=== PATIENT | female | born 1955 | race Caucasian/White ===

== ENCOUNTER 2019-07-24 13:26 | Outpatient (CLI) | payer BC, OTHER | END 2019-07-24 13:27 | disposition home or self-care (01) | LOC: ULT 13:26 | PROVIDERS: ATTEND Internal Medicine Hematology & Oncology | DX: Z51.11 Encounter for antineoplastic chemotherapy (principal); C50.211 Malignant neoplasm of upper-inner quadrant of right female breast; Z79.899 Other long term (current) drug therapy; I08.1 Rheumatic disorders of both mitral and tricuspid valves | CPT/HCPCS: 93306 ==

== ENCOUNTER 2019-07-27 11:44 | Outpatient (CLI) | payer BC ==
[2019-07-27 15:25] LABS: Anion Gap 12 mmol/L (10-20); BUN (Urea Nitrogen) 14 mg/dL (9.8-20.1); Calc. Creatinine Clearance 0 mL/min (70-130); Calcium 9.4 mg/dL (7.8-10.44); Carbon Dioxide 26 mmol/L (23-31); Chloride 101 mmol/L (98-107); Estimated GFR-MDRD 50; Glucose 296 mg/dL (80-115); Sodium 135 mmol/L (136-145)
--- NOTE | 2019-07-29 13:40 | EKG ---
Test Reason : Blood Pressure : / mmHG Vent. Rate : 092 BPM Atrial Rate : 092 BPM P-R Int : 160 ms QRS Dur : 064 ms QT Int : 328 ms P-R-T Axes : 055 023 031 degrees QTc Int : 405 ms Normal sinus rhythm Possible Anterolateral infarct , age undetermined Abnormal ECG No previous ECGs available Confirmed by RANJIT CARDONA (2) on 07/29/2019 1:40:01 PM Referred By: TRACE Confirmed By:RANJIT CARDONA
== END 2019-07-27 11:45 | disposition home or self-care (01) ==
LOC: LABBT 11:44
PROVIDERS: ATTEND Surgery
DX: Z01.818 Encounter for other preprocedural examination (principal); C50.919 Malignant neoplasm of unspecified site of unspecified female breast
CPT/HCPCS: 80048; 93005; 93010

== ENCOUNTER 2019-07-31 08:38 | Outpatient (CLI) | payer BC ==
[2019-07-31] MEDS ORDERED: Iopamidol 370 76% 100 ML VIAL ONE (10:18)
--- NOTE | 2019-07-31 10:38 | CT ---
EXAM: CT chest, abdomen, and pelvis with IV contrast: HISTORY: Recent diagnosis of breast cancer. COMPARISON: None FINDINGS: CT THORAX: Lungs: There are scattered pulmonary nodules within the upper lobes bilaterally some of which are ple ural-based. Largest pleural-based pulmonary nodule in the anterolateral right upper lobe measures 8 mm. Additional smaller pulmonary nodules in the right lung measure 5 mm or less. There is a pulmonary nodule in the left upper lobe measuring 6 mm with a few additional pleural-based nodules also present one at the medial aspect left upper lobe and additional nodule in the anteromedial aspect of the lingula. Additional tiny 3 mm pulmonary nodule seen in the region of the lingula as well. There is a linear parenchymal density at the lateral aspect right midlung zone which could be related to an area of scarring. Pleura: No pleural effusion. Lymph nodes: There are enlarged and increased number of right axillary lymph nodes. Largest right axi llary lymph node measures 3.5 cm x 1.9 cm. Mediastinum: No enlarged mediastinal lymph nodes are seen by CT size criteria. Vascular calcification s are seen in the coronary arteries and involving the thoracic aorta. Chest wall: There is an irregular shaped mass in the right breast measuring 2.4 cm which may correspo nd to patient's known breast neoplasm. There is skin thickening seen overlying the right breast. Findings could potentially be related to prior radiation therapy if the patient has had prior radiati on. CT ABDOMEN AND PELVIS: Liver: Diminished attenuation most compatible with fatty infiltration with focal fatty sparing adjace nt to the gallbladder. No definite hepatic lesion is seen. Gallbladder: Within normal limits. \ Pancreas: Within normal limits. Spleen: Within normal limits. Adrenal glands: Within normal limits. Kidneys: Within normal limits. Urinary Bladder: The urinary bladder is unremarkable. Reproductive organs: Within normal limits for patient's age. Bowel: There is colonic diverticulosis. Loops of small bowel are normal in caliber. Adenopathy:No lymphadenopathy within the abdomen or pelvis. Peritoneum: No free fluid or fluid collection is seen. No free intraperitoneal gas is identified. Abdominal wall: No abnormalities seen. Osseous structures: There is mild S-shaped scoliotic curvature of thoracolumbar spine with degenerati ve changes seen at the lumbosacral junction. No suspicious lytic or sclerotic osseous lesions are identified. IMPRESSION: 1. Irregular mass right breast with overlying skin thickening. Findings may be related to patient's k nown breast neoplasm with skin thickening possibly attributable to prior radiation therapy. 2. Right axillary lymphadenopathy. 3. Pulmonary nodules in the upper lobes bilaterally some of which are pleural-based. Metastatic disea se should be considered. 4. Fatty infiltration liver. 5. No acute findings or lymphadenopathy is seen in the abdomen or pelvis.
--- NOTE | 2019-07-31 14:16 | NM ---
WHOLE BODY BONE SCAN: HISTORY: Malignant neoplasm of upper inner quadrant of the right female breast RADIOPHARMACEUTICAL: 30 mCi technetium 99m-MDP injected intravenously COMPARISON: None CORRELATION: CT chest, abdomen and pelvis from the same date FINDINGS: There scattered degenerative activity in the appendicular skeleton. Increased uptake in the lower lum bar spine corresponds to the degenerative changes seen on the CT scan of same date. No other abnormal areas of tracer localization are seen in the skeleton to suggest metastatic disease . Tracer excretion through the kidneys is within normal limits. IMPRESSION: No scintigraphic evidence of osseous metastatic disease.
== END 2019-07-31 08:39 | disposition home or self-care (01) ==
LOC: CT 08:38
PROVIDERS: ATTEND Internal Medicine Hematology & Oncology
DX: C50.211 Malignant neoplasm of upper-inner quadrant of right female breast (principal); R59.0 Localized enlarged lymph nodes; R91.8 Other nonspecific abnormal finding of lung field; K76.0 Fatty (change of) liver, not elsewhere classified
CPT/HCPCS: 71260; 74177; 78306; A9503; Q9967

== ENCOUNTER 2019-08-06 06:46 | Day surgery (SDC) | payer BC, OTHER ==
[2019-07-27 13:00] VITALS: BMI 38.1
[2019-08-06] MEDS ORDERED: Lidocaine 1% w/Epinephrine 1:100K 20 ML VIAL ONE (09:55)
[2019-08-06] MEDS ORDERED: Bupivacaine 0.25% HCL 30 ML VIAL ONE (09:55)
[2019-08-06] MEDS ORDERED: Fentanyl 100 MCG/2 ML VIAL ONE (09:58)
[2019-08-06] MEDS ORDERED: Propofol 500 MG/50 ML VIAL ONE (09:58)
[2019-08-06] MEDS ORDERED: Midazolam HCl 2 mg/2 ml Vial ONE (09:58)
[2019-08-06] MEDS ORDERED: PHENYLEPHRINE-NS 100 MCG/ML 10 ML SYRINGE ONE (10:33)
--- NOTE | 2019-08-06 12:13 | RAD ---
RADIOGRAPH CHEST 1 VIEW: 08/06/2019 11:42 a.m. HISTORY: A 63-year-old female status post Mediport placement. FINDINGS: There is no air space density, pulmonary edema, or pneumothorax. The lateral costophrenic angles are sharp. There is a vascular access port catheter looped in the medial aspect of the right neck (presumably in the right internal jugular vein), then descending vertically with the distal tip overlying the expec hiren location of the mid to lower portion of the SVC. IMPRESSION: 1. No acute pulmonary findings. 2. Right sided implantable vascular access port. jn [] POS: [facility]
--- NOTE | 2019-08-06 14:57 | OP ---
DATE OF PROCEDURE: 08/06/2019 PREOPERATIVE DIAGNOSIS: Breast cancer, stage III. POSTOPERATIVE DIAGNOSIS: Breast cancer, stage III. PROCEDURES PERFORMED: 1. Attempted left IJ MediPort placement. 2. Right IJ access site tunneled central line with subcutaneous port (MediPort). ANESTHESIA: General. ESTIMATED BLOOD LOSS: Minimal. COMPLICATIONS: None. FINDINGS: The patient had easy wire passage into the superior vena cava from the left side. However, dilator could not be performed, wire could not be passed, so the procedure had to be switched to the right side, which was the patient's cancer side. DESCRIPTION OF PROCEDURE: The patient was taken to the operating room and laid supine on the operating room table. After general anesthetic was obtained, the bilateral neck and chest were prepped and draped in a sterile fashion. Local anesthetic was infiltrated over the left internal jugular vein. Internal jugular vein was cannulated using a 20-gauge finer needle. A wire was passed under no tension into superior vena cava. The wire made a weird turn up towards the azygos vein, but this was able to be curved down into the right atrium and superior vena cava. It could not be made to go straight down the superior vena cava towards the abdomen. Small jay was made at the wire entrance site. A separate 3 cm incision was made in the left chest. The subcutaneous pocket was made below the lower incision, tubing for the MediPort, tunneled from the inferior to the superior incision, and suture sheath was placed over the wire. The introducer sheath was never able to get to the superior vena cava because of the angle in the patient's body habitus. Maneuvers were performed to pull down on the left shoulder and right shoulder, turn the neck more, but it is unsuccessful. Decision was made to remove the catheter and close these incisions up and try the right side. The right IJ was localized and cannulated easily, and a wire was passed into the superior vena cava under fluoro guidance. Small jay was made at the wire entrance site, and a separate 3 cm incision was made in the right chest as well. Subcutaneous pocket was made below the lower incision, tubing for the MediPort tunneled from the inferior to superior incision. Introducer sheath was placed over the wire into the superior vena cava fluoro guidance. The dilator and wire were removed. The end of the catheter was sewed into the sheath. The sheath was peeled away. The tip of the catheter was at the atriocaval junction. MediPort tubing cut to fit the MediPort at the lower incision. MediPort was sewn to the chest pocket using Prolene suture. MediPort was flushed and reyna blood without difficulty. It was flushed with a heparin flush. Again, the tip of the catheter was not able to go straight down in the usual orientation. It goes down toward the brachiocephalic trunk and then goes medial. However, this is what it did from the left side as well and it was left in this location because there was no high-pressure pulsatile flow and the vein was cannulated, and so it is thought not to be in the artery. The patient was sent to Recovery in stable condition. A postprocedure film will be obtained. All instrument counts, needle counts, and lap counts were correct. Job ID: [id number]
== END 2019-08-06 12:25 | disposition home or self-care (01) ==
LOC: SDC 06:46
PROVIDERS: ATTEND Surgery
PROC: 02HV33Z Insertion of Infusion Device into Superior Vena Cava, Percutaneous Approach (ICD-10-PCS; principal; 2019-08-06)
DX: C50.911 Malignant neoplasm of unspecified site of right female breast (principal); I10 Essential (primary) hypertension; E11.9 Type 2 diabetes mellitus without complications; E78.5 Hyperlipidemia, unspecified; F32.9 Major depressive disorder, single episode, unspecified; Z79.4 Long term (current) use of insulin; Z79.899 Other long term (current) drug therapy
CPT/HCPCS: 71045; 78815; A9552; C1788; J0690; J1642; J2250; J2704; J3010; S0020

== ENCOUNTER 2019-08-06 12:39 | Outpatient (CLI) | payer BC ==
--- NOTE | 2019-08-06 15:36 | PET ---
Radionucleotide PET scan with CT attenuation correction HISTORY: Malignant neoplasm right breast upper inner quadrant. Metastatic adenopathy. Lung nodules. I nitial staging. COMPARISON: CT 07/31/2019. FINDINGS: Physiologic uptake of radiotracer throughout the enteric system and along each urinary trac t. Focal area of hypermetabolic activity in the right breast correlates with the primary neoplasm maximum SUV 8.2. Enlarged lymph nodes are present throughout the right axilla and extending to the retropectoral level . Maximum SUV 20.1. With particular attention to the small noncalcified nodules in each lung, including the 8 mm nodule a t the pleura near the right axilla, no increased radiotracer uptake is evident. Nondiagnostic CT attenuation correction images show a hyperdense stone in the gallbladder lumen. Live r is diffusely hypodense. Degenerative changes of the lumbar spine. Diverticula of the colon without adjacent inflammation. IMPRESSION: Right breast neoplasm with malignant right axillary and retropectoral adenopathy. Tiny lung nodules show no abnormal uptake on the exam, although there morphologic size is technically below the threshold for confident identification. Cholelithiasis. Hepatosteatosis. Diverticulosis. No evidence of diverticulitis.
== END 2019-08-06 12:40 | disposition home or self-care (01) ==
LOC: PET 12:39
PROVIDERS: ATTEND Internal Medicine Hematology & Oncology
DX: C50.211 Malignant neoplasm of upper-inner quadrant of right female breast (principal); R93.7 Abnormal findings on diagnostic imaging of other parts of musculoskeletal system; R91.8 Other nonspecific abnormal finding of lung field; R59.0 Localized enlarged lymph nodes; K76.0 Fatty (change of) liver, not elsewhere classified; K80.20 Calculus of gallbladder without cholecystitis without obstruction; K57.30 Diverticulosis of large intestine without perforation or abscess without bleeding
CPT/HCPCS: 78815; A9552

== ENCOUNTER 2019-10-02 08:37 | Outpatient (CLI) | payer BC, OTHER ==
[2019-10-02] MEDS ORDERED: Iopamidol-370 76% 500 ML 1 ML ONE (09:42)
--- NOTE | 2019-10-02 11:52 | ULT ---
LIMITED RIGHT BREAST ULTRASOUND: Date: 10/02/2019 PROVIDED CLINICAL HISTORY: Breast cancer. FINDINGS: Comparison is made with ultrasound examination dated 07/02/2019 from [facility] [place]. Limited sonographic interrogation of the retroareolar region of the right breast at the 8 o'clock pos ition demonstrates interval decrease in known breast cancer size, measuring approximately 1.5 x 0.6 x 1.6 cm. This compares with the size on the prior examination of at least 2.8 x 1.6 x 1.3 cm. Limited sonographic interrogation of the right axilla demonstrates a single abnormally enlarged and l obulated lymph node, measuring about 1.8 x 0.9 cm. IMPRESSION: Interval decrease in size of known right breast cancer. Abnormal right axillary lymph node. POS: [facility]
--- NOTE | 2019-10-02 11:52 | CT ---
CT OF THE THORAX WITH IV CONTRAST: INDICATION: History of breast cancer and pleural-based plaques and nodules. COMPARISON: Prior PET CT dated 08/06/2019 and chest, abdomen, and pelvis dated 07/31/2019. FINDINGS: There is a new 2.8 x 3 cm x 2.1 cm nodular solid mass in the lingula on image 49 of series 3 and imag e 43 of series 5 with surrounding ground-glass airspace opacity. The 5 mm lingular pulmonary nodule is stable-appearing. The 3 mm subpleural pulmonary nodule in the lingula on image 47 of series 3 is stable-appearing. The 7 mm subpleural pulmonary nodule in the inferior lingula on image 56 of series 3 is stable-appearing. The pleural-based nodule involving the right upper lobe on image 36 of series 3 is stable. The sub-4 mm subpleural pulmonary nodule within the right upper lobe on image 49 of series 3 is stable. No suspicious pulmonary nodules are seen within the lower lobes. The lymphadenopathy within the right axilla has decreased in prominence. There is a residual 9 mm ly mph node within the right axilla that previously measured 1.4 cm. No enlarged lymph nodes are seen w ithin the mediastinum. There are mildly prominent lymph nodes within the left hilum, one of the larg est seen in the supralateral region measuring 9 mm. There is a mildly prominent left infrahilar lymp h node measuring 1 cm. There is a right chest wall port in place. There is fatty infiltration of the liver. There is a gallstones within a contracted gallbladder. Ad renal glands appear within normal limits. No suspicious osteolytic or osteoblastic lesion is identified. IMPRESSION: 1. Interval development of a lobulated solid mass in the lingula with surrounding ground-glass opaci ty and enlarged lymph nodes of the left hilar region. This is new from the PET CT dated 08/06/2019. Findings may reflect an infectious etiology such as rounded pneumonia; however, a large metastatic le michele with malignant lymphadenopathy of left hilar regions cannot be entirely excluded. The other sca ttered pulmonary nodules within both lungs are stable. 2. Cholelithiasis with mild fatty liver. CODE T POS: CET
== END 2019-10-02 08:38 | disposition home or self-care (01) ==
LOC: BICCT 08:37
PROVIDERS: ATTEND Internal Medicine Hematology & Oncology
DX: C50.211 Malignant neoplasm of upper-inner quadrant of right female breast (principal); R91.8 Other nonspecific abnormal finding of lung field; K80.20 Calculus of gallbladder without cholecystitis without obstruction; K76.0 Fatty (change of) liver, not elsewhere classified; R59.0 Localized enlarged lymph nodes; K14.8 Other diseases of tongue
CPT/HCPCS: 71260; Q9967

== ENCOUNTER 2019-10-27 10:06 | Outpatient (CLI) | payer BC ==
--- NOTE | 2019-10-27 10:54 | CT ---
Exam: CHEST CT WITHOUT CONTRAST: HISTORY: Follow-up spot on lung for questionable pneumonia versus scar. COMPARISON: 10/02/2019. CORRELATION: PET imaging 08/06/2019. FINDINGS: Post-treatment changes are noted in the right breast and right axilla. Mild fat stranding in the righ t axilla still noted. Largest right axillary lymph node is unchanged, measuring 1.7 x 0.8 cm. Limited evaluation of the mediastinum by the absence of IV contrast. No mediastinal mass, lymphadenop athy or hematoma. Heart size is normal. Minimal coronary artery calcifications. No significant pericardial fluid. Visua lized aorta has a normal caliber. Upper abdomen: Cholelithiasis, without evidence of cholecystitis. Osseous structures: No lytic or blastic lesions. Trachea and central bronchi: Patent. No pleural effusion. Stable pleural-based nodule along the anterior right upper lobe pleural margin measuring 0.6 cm. Previously noted masslike opacity in the left upper lobe has a more linear appearance. Margins contin ue to be somewhat irregular. Area of scar/atelectasis following a focal infectious process is favored. In the appropriate clinical setting, treated neoplasm cannot be excluded. There is an adjace nt groundglass opacity. Currently, this linear opacity with irregular margins measures 2.9 x 1.2 cm, previously measuring 2.8 x 2.2 cm. Stable solid nodule in the left upper lobe measuring 0.6 cm (a xial image 29). Stable solid nodule in the lingula measuring 0.6 cm (axial image 36). No new masses in the left lung. IMPRESSION: 1. Interval decrease in size of a solid mass noted in the left upper lobe. Residual linear opacity do es remain and is suspected to represent a focal area of infection that has nearly resolved. In the appropriate clinical setting, a decreasing metastatic lesion cannot be excluded. Additional smaller n odules in the left upper lobe/lingula are noted and are unchanged. 2. Stable pleural-based density in the right upper lobe. Transcribed Date/Time: 10/27/2019 11:21 AM
== END 2019-10-27 10:07 | disposition home or self-care (01) ==
LOC: CT 10:06
PROVIDERS: ATTEND Internal Medicine Critical Care Medicine
DX: J18.9 Pneumonia, unspecified organism (principal); C50.919 Malignant neoplasm of unspecified site of unspecified female breast; R91.8 Other nonspecific abnormal finding of lung field; J98.4 Other disorders of lung
CPT/HCPCS: 71250

== ENCOUNTER 2019-11-05 12:38 | Outpatient (CLI) | payer BC, OTHER | END 2019-11-05 12:39 | disposition home or self-care (01) | LOC: ULT 12:38 | PROVIDERS: ATTEND Internal Medicine Hematology & Oncology | DX: Z51.11 Encounter for antineoplastic chemotherapy (principal); C50.211 Malignant neoplasm of upper-inner quadrant of right female breast; I08.1 Rheumatic disorders of both mitral and tricuspid valves; Z79.899 Other long term (current) drug therapy | CPT/HCPCS: 93306 ==

== ENCOUNTER 2019-12-08 07:14 | Outpatient (CLI) | payer BC, OTHER ==
[2019-12-08 12:56] LABS: #Lymphocytes 2.2 thou/uL (1.20-3.40); #Monocytes 0.8 thou/uL (0.11-0.59); #Neutrophils 5.2 thou/uL (1.40-6.50); %Basophils 0.3 % (0.0-1.0); %Eosinophils 0.2 % (0.0-10.0); %Lymphocytes 26.9 % (21.0-51.0); %Monocytes 9.9 % (0.0-10.0); %Neutrophils 62.7 % (42.0-75.0); Hemoglobin 12.1 g/dL (12.0-16.0); Mean Corpuscular HGB CONC 33.1 g/dL (32.0-36.0); Mean Corpuscular Hemoglobin 32.6 pg (27.0-31.0); Mean Corpuscular Volume 98.5 fL (78.0-98.0); Mean Platelet Volume 7.2 fL (7.4-10.4); Platelet Count 167 thou/uL (130-400); RBC Distribution Width 14.5 % (11.5-14.5); White Blood Cell (WBC) Count 8.3 thou/uL (4.8-10.8)
[2019-12-08 13:21] LABS: Anion Gap 11 mmol/L (10-20); BUN (Urea Nitrogen) 14 mg/dL (9.8-20.1); Calc. Creatinine Clearance 0 mL/min (70-130); Calcium 9.2 mg/dL (7.8-10.44); Carbon Dioxide 25 mmol/L (23-31); Chloride 106 mmol/L (98-107); Estimated GFR-MDRD 54; Glucose 120 mg/dL (80-115); Potassium 4.4 mmol/L (3.5-5.1); Sodium 138 mmol/L (136-145)
[2019-12-08 17:47] LABS: SARS-CoV-2 MS2 Positive; SARS-CoV-2 N Gene Negative; SARS-CoV-2 S Gene Negative; SARS-CoV-2 orf1ab Negative
== END 2019-12-08 07:15 | disposition home or self-care (01) ==
LOC: LABBT 07:14
PROVIDERS: ATTEND Surgery
DX: Z01.818 Encounter for other preprocedural examination (principal); Z11.59 Encounter for screening for other viral diseases; C50.911 Malignant neoplasm of unspecified site of right female breast
CPT/HCPCS: 80048; 85025; 87635; 93005; 93010; U0003

== ENCOUNTER 2019-12-08 10:09 | Outpatient (CLI) | payer BC, OTHER ==
--- NOTE | 2019-12-08 13:25 | ULT ---
RIGHT AXILLARY ULTRASOUND: 12/08/19 COMPARISON: 10/02/19 HISTORY: Breast cancer status post radiation therapy. Evaluate for residual enlarged lymph nodes in the right axilla. TECHNIQUE: Multiplanar [place] scale and color Doppler images were obtained in a right axillary ultrasound. FINDINGS: The previously seen large lymph nodes in the right axilla has significantly decreased in size. There are a few small lymph nodes which still maintain fatty hema. The largest measures 2.5 cm in size. The se have significantly decreased in size compared to the prior exam. IMPRESSION: Decreased size of right axillary lymphadenopathy. POS: [facility]
== END 2019-12-08 10:10 | disposition home or self-care (01) ==
LOC: BICULT 10:09
PROVIDERS: ATTEND Surgery
DX: C50.919 Malignant neoplasm of unspecified site of unspecified female breast (principal); R59.0 Localized enlarged lymph nodes
CPT/HCPCS: 76999; 80048; 85025; 87635; 93005; U0003

== ENCOUNTER 2019-12-10 06:42 | Day surgery (SDC) | payer BC, OTHER ==
[2019-12-08 11:44] VITALS: BMI 37.5
[2019-12-10] MEDS ORDERED: Bupivacaine 0.25% HCL 30 ML VIAL ONE (11:14)
[2019-12-10] MEDS ORDERED: Lidocaine 1% w/Epinephrine 1:100K 20 ML VIAL ONE (11:14)
[2019-12-10] MEDS ORDERED: Fentanyl 100 MCG/2 ML VIAL ONE ×2 (11:47→13:35)
--- NOTE | 2019-12-10 11:53 | NM ---
Exam: Nuclear medicine lymphoscintigraphy HISTORY: Right breast cancer. COMPARISON: None TECHNIQUE: The patient was administered 0.395 mCi of technetium 99m filtered sulfur colloid subcutane ously at the 12:00, 3:00, 6:00 and 9:00 position FINDINGS: Immediate, 1 hour and 2 hour imaging was performed. No scintigraphic evidence of a sentinel lymph node. Exam was terminated. IMPRESSION: No scintigraphic evidence of a sentinel lymph node after 2 hour imaging.
[2019-12-10] MEDS ORDERED: Ondansetron PF 4 MG/2 ML Vial ONE (14:17)
[2019-12-10] MEDS ORDERED: Glycopyrrolate 0.2 MG/ML 5 ML SYRINGE ONE (14:17)
[2019-12-10] MEDS ORDERED: PHENYLEPHRINE-NS 100 MCG/ML 10 ML SYRINGE ONE (14:17)
[2019-12-10] MEDS ORDERED: Dexamethasone 20 MG/5 ML VIAL ONE (14:17)
[2019-12-10] MEDS ORDERED: EPHEDRINE 25 MG/5 ML SYRINGE ONE (14:17)
[2019-12-10] MEDS ORDERED: PROPOFOL 200 MG/20 ML VIAL ONE (14:17)
[2019-12-10] MEDS ORDERED: Lidocaine 1% PF 5 ML VIAL ONE (14:17)
[2019-12-10] MEDS ORDERED: Rocuronium Bromide 10 MG/ML (10ML VIAL) ONE (14:17)
[2019-12-10] MEDS ORDERED: SUGAMMADEX SODIUM 200 MG/2 ML VIAL ONE (14:27)
[2019-12-10] MEDS ORDERED: HYDROcodone/Acetaminophen 5/325 mg Tablet ONE (14:40)
--- NOTE | 2019-12-10 15:16 | MMO ---
EXAM RIGHT BREAST NEEDLE LOCALIZATION WITH MAMMOGRAPHIC GUIDANCE: 12/10/19 HISTORY: Right breast cancer. FINDINGS: Successful right breast needle localization with mammographic guidance. 7.5 cm Bronson needle and wire are adjacent to the biopsy clip in the right breast. TECHNIQUE: Consent was obtained for a right breast needle localization with mammographic guidance. Right breast was compressed in the lateral medial projection. Clip was identified. Breast was prepped and draped i n a sterile fashion. 1% Lidocaine, buffered with sodium bicarbonate was used for local anesthesia. Un wilder mammographic guidance, 7.5 cm Bronson needle and wire were advanced into the right breast. Needle a nd wire adjacent to the clip. Clip was deployed. Images were obtained. Patient tolerated the procedur e well. No immediate or postprocedure complication. IMPRESSION: Successful right breast needle localization with mammographic guidance. SURGICAL SPECIMEN RADIOGRAPH: Surgical clip is identified along with Bronson wire in the specimen radiograph. Findings conveyed to Dr Triston Herrera by Dr. Alegria, 12/10/19 at 1:06 p.m. Code CR POS: OFF
--- NOTE | 2019-12-11 10:08 | OP ---
DATE OF PROCEDURE: 12/10/2019 PREOPERATIVE DIAGNOSES: Right breast cancer, history of node positive disease, status post neoadjuvant chemotherapy. POSTOPERATIVE DIAGNOSES: Right breast cancer, history of node positive disease, status post neoadjuvant chemotherapy. PROCEDURES PERFORMED: 1. Right partial mastectomy after needle localization. 2. Right axillary node dissection (failed sentinel node protocol). ANESTHESIA: General. ESTIMATED BLOOD LOSS: Minimal. COMPLICATIONS: None. FINDINGS: Failed sentinel node protocol. SPECIMENS: Right breast mass marked with 2 shorts superior, 1 long lateral, sent to path for final diagnosis. AXILLARY CONTENTS: Sent separate. TECHNIQUE: The patient was taken to the operating room and laid supine on the operating room table. After general anesthetic was obtained, the right breast, axilla, and arm were all prepped and draped in a sterile fashion. Incision was made curved along the areola. Flaps were raised superior medially and inferior laterally around the end of needle localization wire. Specimen was sent to x-ray, which revealed the previous biopsy clip and abnormality to be in the specimen, it was marked with 2 shorts superior and 1 long lateral, sent to path for final diagnosis. Next, incision was made along the inferior hairline of the right axilla. Dissection was taken down to clavipectoral fascia. Dissection was taken down up under the pectoralis minor muscle, the axillary vein was found. The no named vein was taken just off that. The intercostal brachial nerve was taken using the small LigaSure. The long thoracic thoracodorsal nerves were removed. Dissection was performed to include level 1 and 2 axillary contents. Contents were sent to path for final diagnosis. #10 drain brought out through a separate stab incision and sewn to the skin using silk. The wound was irrigated. There was no ongoing bleeding. The wound was closed in 3-0 Vicryl, 4-0 Monocryl, and Dermabond. Incision at the breast was closed in 3-0 Vicryl, 4-0 Monocryl, and Dermabond. The patient was sent to Recovery in stable condition. All instrument counts, needle counts, and lap counts are correct. Job ID: [id number]
== END 2019-12-10 15:45 | disposition home or self-care (01) ==
LOC: SDC 06:42
PROVIDERS: ATTEND Surgery
PROC: 07T50ZZ Resection of Right Axillary Lymphatic, Open Approach (ICD-10-PCS; principal; 2019-12-10)
PROC: 0HBT0ZZ Excision of Right Breast, Open Approach (ICD-10-PCS; principal; 2019-12-10)
DX: C50.511 Malignant neoplasm of lower-outer quadrant of right female breast (principal); E11.9 Type 2 diabetes mellitus without complications; I10 Essential (primary) hypertension; Z17.0 Estrogen receptor positive status [ER+]; Z79.4 Long term (current) use of insulin; Z79.899 Other long term (current) drug therapy
CPT/HCPCS: 19281; 36416; 76098; 78195; 88307; A9541; J1100; J1642; J2001; J2405; J2704; J3010; S0020

== ENCOUNTER 2020-03-10 13:23 | Outpatient (CLI) | payer BC, OTHER | END 2020-03-10 13:24 | disposition home or self-care (01) | LOC: ULT 13:23 | PROVIDERS: ATTEND Internal Medicine Hematology & Oncology | DX: Z51.11 Encounter for antineoplastic chemotherapy (principal); C50.211 Malignant neoplasm of upper-inner quadrant of right female breast; I08.8 Other rheumatic multiple valve diseases; Z79.899 Other long term (current) drug therapy | CPT/HCPCS: 93306 ==

== ENCOUNTER 2020-05-25 12:49 | Outpatient (CLI) | payer BC, OTHER | END 2020-05-25 12:50 | disposition home or self-care (01) | LOC: ULT 12:49 | PROVIDERS: ATTEND Internal Medicine Hematology & Oncology | DX: Z51.11 Encounter for antineoplastic chemotherapy (principal); C50.211 Malignant neoplasm of upper-inner quadrant of right female breast; I08.1 Rheumatic disorders of both mitral and tricuspid valves; Z79.899 Other long term (current) drug therapy | CPT/HCPCS: 93306 ==

== ENCOUNTER 2020-09-13 12:37 | Outpatient (CLI) | payer BC | END 2020-09-13 12:38 | disposition home or self-care (01) | LOC: ULT 12:37 | PROVIDERS: ATTEND Internal Medicine Hematology & Oncology | DX: Z51.11 Encounter for antineoplastic chemotherapy (principal); C50.211 Malignant neoplasm of upper-inner quadrant of right female breast; Z79.899 Other long term (current) drug therapy; I08.1 Rheumatic disorders of both mitral and tricuspid valves | CPT/HCPCS: 93306 ==

== ENCOUNTER 2020-09-22 13:06 | Outpatient (CLI) | payer BC | END 2020-09-22 13:07 | disposition home or self-care (01) | LOC: BICCT 13:06 | PROVIDERS: ATTEND Internal Medicine Hematology & Oncology | DX: Z08 Encounter for follow-up examination after completed treatment for malignant neoplasm (principal); Z85.3 Personal history of malignant neoplasm of breast | CPT/HCPCS: 71260; 77066; G0279 ==

== ENCOUNTER 2022-02-09 14:05 | Outpatient (CLI) | payer BC, OTHER ==
[2022-02-09] MEDS ORDERED: Iopamidol-370 76% 500 ML 1 ML ONE (15:33)
== END 2022-02-09 14:06 | disposition home or self-care (01) ==
LOC: BICCT 14:05
PROVIDERS: ATTEND Internal Medicine Hematology & Oncology
DX: J92.9 Pleural plaque without asbestos (principal); C50.919 Malignant neoplasm of unspecified site of unspecified female breast; J98.11 Atelectasis
CPT/HCPCS: 71260; 82565

== ENCOUNTER 2022-10-12 08:54 | Outpatient (CLI) | payer MEDICARE, BC | END 2022-10-12 08:55 | disposition home or self-care (01) | LOC: BICMAMMO 08:54 | PROVIDERS: ATTEND Internal Medicine Hematology & Oncology | DX: C50.211 Malignant neoplasm of upper-inner quadrant of right female breast (principal); M85.851 Other specified disorders of bone density and structure, right thigh; M85.852 Other specified disorders of bone density and structure, left thigh | CPT/HCPCS: 77066; 77080; G0279 ==

== ENCOUNTER 2023-02-06 08:28 | Outpatient (CLI) | payer MEDICARE, BC ==
[2023-02-06] MEDS ORDERED: Iopamidol 370 76% 100 ML VIAL ONE (09:22)
== END 2023-02-06 08:29 | disposition home or self-care (01) ==
LOC: BICCT 08:28
PROVIDERS: ATTEND Internal Medicine Hematology & Oncology
DX: C50.211 Malignant neoplasm of upper-inner quadrant of right female breast (principal); R91.1 Solitary pulmonary nodule
CPT/HCPCS: 71260; 82565; Q9967

== ENCOUNTER 2024-02-03 13:05 | Outpatient (CLI) | payer MEDICARE, BC | END 2024-02-03 13:06 | disposition home or self-care (01) | LOC: BICCT 13:05 | PROVIDERS: ATTEND Internal Medicine Hematology & Oncology | DX: R91.8 Other nonspecific abnormal finding of lung field (principal); C50.919 Malignant neoplasm of unspecified site of unspecified female breast; J92.9 Pleural plaque without asbestos; K76.0 Fatty (change of) liver, not elsewhere classified | CPT/HCPCS: 71250 ==

== ENCOUNTER 2025-02-10 14:59 | Outpatient (CLI) | payer MEDICARE, BC | END 2025-02-10 15:00 | disposition home or self-care (01) | LOC: BICCT 14:59 | PROVIDERS: ATTEND Internal Medicine Hematology & Oncology | DX: C50.211 Malignant neoplasm of upper-inner quadrant of right female breast (principal); R91.8 Other nonspecific abnormal finding of lung field; M79.89 Other specified soft tissue disorders; K80.20 Calculus of gallbladder without cholecystitis without obstruction; K76.0 Fatty (change of) liver, not elsewhere classified; N64.59 Other signs and symptoms in breast | CPT/HCPCS: 71250 ==